=== PATIENT | female | born 1940 | race Caucasian/White ===

== ENCOUNTER → 2024-06-01 15:08 | Outpatient (CLI) | payer MEDICARE, OTHER, SELFPAY ==
--- NOTE | 2024-06-01 15:14 | DI.MRI.S_ITS ---
PROCEDURE: MR CERVICAL SPINE WO CON INDICATIONS: SPONDYLOSIS W/O MYELOPATHY/CERVICAL PAIN TECHNIQUE: Noncontrast sagittal T1 spin echo and T2 fast spin echo, sagittal STIR, foraminal oblique sagittal T2 fast spin echo, and axial gradient echo or T2 fast spin echo through the cervical spine. COMPARISON: [facility], MR, MR THORACIC SPINE WO CON, 06/01/2024, 15:28. FINDINGS: Image quality: Excellent. Alignment and Curvature: There is trace retrolisthesis C2 on C3, C3 on C4, C5-C6. Bone Marrow: Marrow demonstrates normal overall signal. Spinal Cord: Visualized spinal cord has normal size and signal. No cerebellar tonsillar herniation. Paraspinous Soft Tissues: No paravertebral masses. Prevertebral soft tissues are normal in thickness. Discs: Multilevel overall moderate disc desiccation. C2-C3: No disc bulge, spinal stenosis or foraminal narrowing. C3-C4: Minimal disc bulge without spinal stenosis. Minimal mild right foraminal narrowing. C4-C5: Mild disc bulge with slight effacement of the anterior thecal sac. Mild to moderate right foraminal narrowing. C5-C6: Mild disc bulge with effacement of the anterior thecal sac. Mild bilateral foraminal narrowing. C6-C7: Mild disc with mild spinal stenosis. Mild right foraminal narrowing with uncovertebral hypertrophy. C7-T1: No disc bulge, spinal stenosis or foraminal narrowing. IMPRESSION: Multilevel disc bulges. Multilevel foraminal narrowing overall mild most notable at C4-5 secondary to uncovertebral arthropathy. Dictated by: Janelle Baum M.D. on 06/01/2024 at 20:20 Approved by: Janelle Baum M.D. on 06/01/2024 at 20:22
--- NOTE | 2024-06-01 15:14 | DI.MRI.S_ITS ---
PROCEDURE: MR THORACIC SPINE WO CON INDICATIONS: SPONDYLOSIS W/O MYELOPATHY/CERVICAL PAIN TECHNIQUE: Noncontrast sagittal T1 spine echo and T2 fast spin echo, sagittal STIR, and T2 fast spin echo through the thoracic spine. COMPARISON: [facility], , MR CERVICAL SPINE WO CON, 06/01/2024, 15:28. Outside Film, CR, XR THORACIC SPINE 3 VIEWS, 05/06/2024, 11:28. FINDINGS: Image quality: Excellent. Alignment and Curvature: There is normal bony alignment. Bone Marrow: Marrow is of normal overall signal. No acute vertebral body compression fractures. Spinal Cord: Visualized spinal cord is normal in size and signal. Paraspinous Soft Tissues: No paravertebral masses. Miscellaneous: On axial images, central canal and foramina appear widely patent at all scanned levels. Multilevel disc desiccation. Very minimal scattered disc bulges and protrusions. IMPRESSION: Very minimal scattered disc bulges/protrusions. No spinal stenosis or foraminal narrowing. Dictated by: Janelle Baum M.D. on 06/01/2024 at 20:18 Approved by: Janelle Baum M.D. on 06/01/2024 at 20:20
== END ==
PROVIDERS: Referring Provider Physical Medicine & Rehabilitation; Visit Provider Physical Medicine & Rehabilitation
DX: M47.814 Spondylosis without myelopathy or radiculopathy, thoracic region; M50.321 Other cervical disc degeneration at C4-C5 level; M48.02 Spinal stenosis, cervical region
CPT/HCPCS: 72141; 72146